=== PATIENT | female | born 1940 | race Caucasian/White ===

== ENCOUNTER → 2019-10-03 | Outpatient (CLI) | payer MEDICARE, BC ==
--- NOTE | 2019-10-03 15:24 | XR ---
Lumbar spine HISTORY: Back pain, M 52.5 3 views of the lumbar spine Lumbar vertebral bodies show preserved height. Bone mineralization is reduced. There is anterolisthes is grade 1 at L4-5, L5-S1, retrolisthesis grade 1 L1-2, L2-3. There is vacuum phenomenon present at L 5-S1, L3-4. Sclerosis present in the posterior elements is consistent with facet arthropathy. Atheros clerotic vascular calcifications are present within the aortoiliac distribution. There is mild spinal curvature. IMPRESSION: Degenerative disc disease and facet arthropathy. Osteopenia. Mild spinal curvature.
== END | disposition home or self-care (01) ==
LOC: RADXRMAIN 11:03
PROVIDERS: ATTEND Internal Medicine Geriatric Medicine
DX: M51.36 Other intervertebral disc degeneration, lumbar region (principal); M47.816 Spondylosis without myelopathy or radiculopathy, lumbar region; M85.88 Other specified disorders of bone density and structure, other site
CPT/HCPCS: 72100

== ENCOUNTER → 2020-11-06 | Outpatient (CLI) | payer MEDICARE, BC ==
--- NOTE | 2020-11-06 10:28 | XR ---
EXAMINATION TYPE: XR chest 2V DATE OF EXAM: 11/06/2020 COMPARISON: NONE TECHNIQUE: PA and lateral views submitted. HISTORY: Pain FINDINGS: The lungs are clear and there is no pneumothorax, pleural effusion, or focal pneumonia. Atrophic an d degenerative change of the spine. Arthropathy of the shoulders. IMPRESSION: 1. No acute process.
--- NOTE | 2020-11-06 10:30 | XR ---
EXAMINATION TYPE: XR cervical spine comp DATE OF EXAM: 11/06/2020 COMPARISON: NONE HISTORY: Pain TECHNIQUE: Four views are submitted. FINDINGS: The odontoid is intact. There are no compression deformities. The prevertebral soft tissue structur es are within normal limits. Calcification soft tissue the left neck compatible carotid artery calci fication. There is degenerative disc disease at all levels with severe changes involving levels C5-6 and C6-C7. There is a retrolisthesis of C5 relative to C6 with posterior spondylosis. Multilevel face t arthropathy. Multilevel neural foraminal encroachment at all levels bilaterally. IMPRESSION: 1. Multilevel moderate to severe degenerative disc disease with multilevel foraminal encroachment. Re commend follow-up MRI..
--- NOTE | 2020-11-06 10:31 | XR ---
EXAMINATION TYPE: XR shoulder complete RT DATE OF EXAM: 11/06/2020 COMPARISON: NONE HISTORY: Pain TECHNIQUE: Three views are submitted. FINDINGS: The osseous structures are intact. There is no acute fracture or dislocation. Severe narrowing of th e glenohumeral joint with arthropathy of the AC joint.. IMPRESSION: 1. Severe arthropathy correlate clinically. Follow-up MRI recommended..
== END | disposition home or self-care (01) ==
LOC: RADXRYALE 10:01
PROVIDERS: ATTEND Nurse Practitioner Family
DX: M12.811 Other specific arthropathies, not elsewhere classified, right shoulder (principal); M50.322 Other cervical disc degeneration at C5-C6 level; M54.9 Dorsalgia, unspecified; Z91.81 History of falling
CPT/HCPCS: 71046; 72050

== ENCOUNTER → 2022-09-21 | Outpatient (CLI) | payer MEDICARE, BC ==
[~2022-09-21] MED LIST: REGADENOSON 0.4 MG/5 ML SYRINGE IV PRN
--- NOTE | 2022-09-21 12:01 | NM ---
EXAMINATION TYPE: NM stress lexiscan cardiolite DATE OF EXAM: 09/21/2022 COMPARISON: NONE CLINICAL INDICATION: Female, 82 years old with history of I25.10; TECHNIQUE: After the intravenous administration of 9.2 mCi Tc 99m Sestamibi - Cardiolite resting SPE CT images acquired 45 minutes post injection. The patient received 0.4mg Lexiscan, 25.4 mCi Tc 99m Sestamibi - Stress images obtained [address] injection FINDINGS: Review of stress and rest SPECT images demonstrates no distinct perfusion abnormality. Gated analysi s shows normal wall motion with an estimated left ventricular ejection fraction of 63 %. IMPRESSION: No scintigraphic evidence for reversible ischemia.
--- NOTE | 2022-09-22 15:57 | CA ---
Lexiscan Nuclear Stress Test Report Name: Rimma Mccarthy Exam Date: 09/21/2022 09:44 Exam Location: [facility] Stress Ht (in): 63 Wt (lb): 205 BSA: 1.95 Ordering Phys: Prasanth Etienne MD Referring Phys: PRASANTH ETIENNE,, Technologist: Kristian Quezada Age: 82 Gender: F : 1940 Procedure CPT: Indications: I25.10 ICD-10 Codes: Patient History: Medications: zimbalta, lisinopril Meds past 24 hrs: Pretest Chest Pain: STRESS TEST Lexiscan Protocol Exercise Duration (min:sec): 02:[address] Depressions (mm): Angina Score: Vasquez Score: Resting HR (bpm): 65 Peak HR (bpm): 86 Resting BP (mmHg): 190 / 86 Peak BP (mmHg): 197 / 84 MPHR: 136 Target HR: 116 % MPHR: 63 METS: 1.0 Total Dose: Peak Dose: Atropine: Double Product: 77142 BP Response: Stress Termination: PROTOCOL COMPLETE Stress Symptoms: NO SYMPTOMS Stress Summary: ECG ANALYSIS Resting ECG: Stress ECG: CONCLUSIONS No ECG evidence for ischemia during Lexiscan infusion Elevated blood pressure readings No symptoms Dr. Joseph Carbajal MD (Electronically Signed) Final Date: 22 September 2022 15:56
== END | disposition home or self-care (01) ==
LOC: RADNMMAIN 08:03
PROVIDERS: ATTEND Internal Medicine
DX: I25.10 Atherosclerotic heart disease of native coronary artery without angina pectoris (principal); I65.23 Occlusion and stenosis of bilateral carotid arteries
CPT/HCPCS: 78452; A9500; J2785; 93017

== ENCOUNTER → 2022-09-26 | Outpatient (CLI) | payer MEDICARE ==
--- NOTE | 2022-09-26 09:07 | US ---
EXAMINATION TYPE: US carotid duplex BILAT DATE OF EXAM: 09/26/2022 COMPARISON: NONE CLINICAL INDICATION: Female, 82 years old with history of I25.10 CORONARY ARTERICSCLEROSIS,I65.23 GILMA NOSIS; hip surgery TECHNIQUE: Carotid duplex ultrasound examination. Indirect Doppler criteria was utilized. FINDINGS: EXAM MEASUREMENTS: RIGHT: Peak Systolic Velocity (PSV) cm/sec ----- Right CCA: 48.7 ----- Right ICA: 73.5 ----- Right ECA: 75.5 ICA/CCA ratio: 1.5 RIGHT: End Diastole cm/sec ----- Right CCA: 11.6 ----- Right ICA: 25.2 ----- Right ECA: 16.8 LEFT: Peak Systolic Velocity (PSV) cm/sec ----- Left CCA: 84.1 ----- Left ICA: 89.1 ----- Left ECA: 112 ICA/CCA ratio: 1.1 LEFT: End Diastole cm/sec ----- Left CCA: 20.2 ----- Left ICA: 26.7 ----- Left ECA: 14.3 VERTEBRALS (direction of flow): Right Vertebral: Antegrade Left Vertebral: Antegrade Rhythm: Normal INDUSTRIAL DESIGN INTERN NOTES: Mild atherosclerotic plaque seen bilaterally, no elevated velocities IMPRESSION: No evidence for hemodynamically significant stenosis. Criteria for Assigning % of Stenosis / Diameter reduction (Estimation based on the indirect measurements of the internal carotid artery velocities (ICA PSV). 1. Normal (no stenosis)=ICA PSV < 125 cm/s: ratio < 2.0: ICA EDV<40 cm/s. 2. Less than 50% stenosis=ICA PSV < 125 cm/s: ratio < 2.0: ICA EDV<40 cm/s. 3. 50 to 69% stenosis=ICA PSV of 125 to 230 cm/s: ration 2.0 ? 4.0: ICA EDV 40-100 cm/s. 4. Greater than 70% stenosis to near occlusion= ICA PSV > 230 cm/s: ratio > 4.0: ICA EDV > 100 cm/s. 5. Near occlusion= ICA PSV velocities may be low or undetectable: variable ratio and ICA EDV. 6. Total occlusion=unable to detect flow.
== END | disposition home or self-care (01) ==
LOC: RADPROWWP 08:07
PROVIDERS: ATTEND Internal Medicine
DX: I25.10 Atherosclerotic heart disease of native coronary artery without angina pectoris (principal); I65.23 Occlusion and stenosis of bilateral carotid arteries
CPT/HCPCS: 93880

== ENCOUNTER → 2022-11-08 | Outpatient (CLI) | payer MEDICARE, BC ==
--- NOTE | 2022-11-08 14:40 | US ---
EXAMINATION TYPE: US venous doppler duplex LE RT DATE OF EXAM: 11/08/2022 1:47 PM COMPARISON: NONE CLINICAL INDICATION: Female, 82 years old with history of M79.604 R LEG PAIN; Rt leg post op hip repl acement SIDE PERFORMED: Right TECHNIQUE: The lower extremity deep venous system is examined utilizing real time linear array sonog wendi with graded compression, doppler sonography and color-flow sonography. VESSELS IMAGED: Common Femoral Vein Deep Femoral Vein Greater Saphenous Vein * Femoral Vein Popliteal Vein Small Saphenous Vein * Proximal Calf Veins (* superficial vessels) Right Leg: Negative for DVT IMPRESSION: Grayscale, color doppler, spectral doppler imaging performed of the deep veins of the lo wer extremities. There is normal flow, compressibility, vascular waveforms.
== END | disposition home or self-care (01) ==
LOC: RADUSWWP 12:22
PROVIDERS: ATTEND Internal Medicine
DX: M79.604 Pain in right leg (principal); Z96.641 Presence of right artificial hip joint

== ENCOUNTER → 2024-07-24 | Outpatient (CLI) | payer MEDICARE, BC ==
--- NOTE | 2024-07-24 10:41 | US ---
EXAMINATION TYPE: US liver DATE OF EXAM: 07/24/2024 COMPARISON: NONE CLINICAL INDICATION: Female, 84 years old with history of R79.89 OTHER SPECIFIED ABNORMAL FINDINGS OF BLOOD; Abnormal labs TECHNIQUE: Grayscale and color Doppler imaging of the right upper quadrant was performed. FINDINGS: EXAM MEASUREMENTS: Liver Length: 14.5 cm Gallbladder Wall: 0.2 cm CBD: 0.4 cm Right Kidney: 10.2 x 5[address] SQL PROGRAMMER NOTES:Exam limited by intercostal scanning, patient body habitus, and bowel gas Pancreas: Tail obscured by overlying bowel gas, echogenic Liver: Multiple cysts seen, largest on the left liver measuring 1.7 x 1.6 x 2.2 cm Gallbladder: Echogenic focus noted within measuring 1.6 x 1.4 cm Evidence for sonographic Hess's sign: No CBD: wnl Right Kidney: No hydronephrosis or masses seen A few simple appearing thin-walled cysts are scattered throughout the liver. IMPRESSION: Gallstone without sonographic evidence for acute cholecystitis. [facility], , 07/24/2024 10:39 AM
== END | disposition home or self-care (01) ==
LOC: RADUSWWP 09:32
PROVIDERS: ATTEND Internal Medicine
DX: K80.20 Calculus of gallbladder without cholecystitis without obstruction (principal); R79.89 Other specified abnormal findings of blood chemistry
CPT/HCPCS: 76705